=== PATIENT | female | born 1985 | race Caucasian/White ===

== ENCOUNTER 2023-05-27 10:34 | Outpatient (CLI) | payer OTHER, SELFPAY | END 2023-05-27 10:35 | disposition home or self-care (01) | PROVIDERS: PCP Nurse Practitioner Family; Visit Provider Nurse Practitioner Family | DX: Z00.00 Encounter for general adult medical examination without abnormal findings (principal); N39.3 Stress incontinence (female) (male); Z13.6 Encounter for screening for cardiovascular disorders; Z13.1 Encounter for screening for diabetes mellitus; Z13.0 Encounter for screening for diseases of the blood and blood-forming organs and certain disorders involving the immune mechanism | CPT/HCPCS: 80061; 81015; 82947; 85025 ==

== ENCOUNTER 2025-06-05 10:23 | Outpatient (CLI) | payer OTHER, SELFPAY ==
[2025-06-07 06:02] LABS: HPV Source Vaginal
[2025-06-19 13:39] LABS: Pap Test Digital Imaging Done; Pap Test Reviewed by Path Done
== END 2025-06-05 10:24 | disposition home or self-care (01) ==
PROVIDERS: PCP Nurse Practitioner Family; Visit Provider Nurse Practitioner Family
DX: Z00.00 Encounter for general adult medical examination without abnormal findings (principal); Z13.21 Encounter for screening for nutritional disorder; Z13.0 Encounter for screening for diseases of the blood and blood-forming organs and certain disorders involving the immune mechanism
CPT/HCPCS: 80053; 80061; 82306; 85025; 87624; 87625; 88141; 88142; 88175